=== PATIENT | female | born 1985 | race Caucasian/White ===

== ENCOUNTER 2020-06-04 11:33 | Day surgery (SDC) | payer MEDICARE, MEDICAID ==
[~2020-06-04 11:33] MED LIST: Lactated Ringers 1,000 ML IV SCH; Lidocaine 1%/Sod Bicarbonate in NS 8.4% 1 ML Syringe IDERM PRN; Sodium Chloride 0.9% 10 ML Syringe FLUSH PRN
[2020-06-04] MEDS ORDERED: Bupivacaine 0.5% 30 ML SDV ONE (11:40)
[2020-06-04] MEDS ORDERED: Lidocaine 1% with EPINEPHrine 1:100,000 10 ML MDV ONE ×2 (11:40→12:21)
--- NOTE | 2020-06-04 13:20 | PCM.PRNOTE ---
- Free Text/Narrative Note: Date: 06/04/2020 Operation: lipoma excision, scalp Surgeon: Jem Schreiber MD Findings: egg-sized wad of lipomatous fat at left occiput overlying inion. Detailed Report: The patient was taken to the operating room and placed in right lateral decubitus position. Timeout was performed. The operation was done completely under local anesthetic, a total of 30 cc 0.5% Marcaine with epinephrine was used throughout the case. The hair overlying the palpable mass at the left occipital region was clipped, and this area was prepped with ChloraPrep and draped in sterile fashion. Local anesthetic was injected intradermally over the site of lesion. An ellipse of skin measuring 5 x 3 cm oriented transversely was marked at the site of the lesion. A 15 blade scalpel was used to incise through skin to subcutaneous tissue along the line of the marked ellipse. The skin was excised. The underlying lipomatous fat was dissected free from surrounding soft tissue. The lipoma was fairly extensive and was multilobular. Tedious dissection was performed until it seemed that all of the lipomatous fat was excised. The final specimen measured approximately 7 x 7 x 4 cm the tissue was sent for pathologic analysis. The wound bed was hemostatic. Deeper tissue was brought together with a few interrupted 3-0 Vicryl sutures. The skin was closed with several interrupted simple 4-0 nylon sutures. The patient tolerated the procedure well.
== END 2020-06-04 13:52 | disposition home or self-care (01) ==
LOC: JD.SDS 11:33
PROVIDERS: ATTEND Surgery
DX: D17.0 Benign lipomatous neoplasm of skin and subcutaneous tissue of head, face and neck (principal); M10.9 Gout, unspecified; I10 Essential (primary) hypertension; Z88.8 Allergy status to other drugs, medicaments and biological substances; Z87.891 Personal history of nicotine dependence
CPT/HCPCS: 11426; J3490